=== PATIENT | male | born 2000 | race African-American/Black ===

== ENCOUNTER 2020-12-09 06:09 | Emergency (ER) | payer SELFPAY ==
[2020-12-09] VITALS (12 sets, daily range): BP systolic 119–135; BP diastolic 67–85; PULSE 61–66; RESP 15–20; TEMP 36.8; O2SAT 98–100
--- NOTE | ~2020-12-09 | CT_ITS ---
EXAMINATION: CT abdomen pelvis w con DATE: 12/09/2020 07:41 INDICATION: Right lower quadrant abdominal pain TECHNIQUE: Computed tomography (CT) of the abdomen and pelvis was performed with 100 mL Omnipaque-350 intravenous contrast. Automated exposure control and iterative reconstruction technique were employe d. The dose-length product was 215.63 mGy-cm. COMPARISON: None FINDINGS: Calcified nodule along the right major fissure consistent with old granulomatous disease. Heart size is normal. No pericardial or pleural effusion. Liver, gallbladder, spleen, pancreas, bilateral adrena l glands and kidneys are normal. Fluid throughout the small bowel without evident wall thickening or obstruction which could be seen with gastroenteritis. Colon and appendix are normal. Decompressed jia dder is normal. Minimal ascites in the pelvis. No abscess or free intraperitoneal gas. No pathologica lly enlarged abdominal or pelvic lymphadenopathy. Bones are unremarkable. IMPRESSION: 1. Nonspecific fluid-filled nondilated small bowel and minimal ascites in the pelvis which could be s een with an enteritis. 2. Normal appendix. Reviewed, dictated and finalized at location A. IMPRESSION: 1. Nonspecific fluid-filled nondilated small bowel and minimal ascites in the p anabella which could be seen with an enteritis. 2. Normal appendix.
[2020-12-09 07:02] LABS: Basophils Percent Auto 0.2 % (0.2-1.2); Eosinophils Absolute Auto 0.2 K/mm3 (0-0.3); Eosinophils Percent Auto 2.6 % (0-4.4); Hematocrit 44.3 % (42.0-52.0); Hemoglobin 14.5 g/dL (14.0-18.0); Immature Granulocyte Absolute 0.01 K/mm3 (0.00-0.031); Immature Granulocyte Percent A 0.2 % (0-0.5); Lymphocytes Absolute Auto 1.94 K/mm3 (0.9-3.2); Lymphocytes Percent Auto 29.7 % (18.3-44.2); Mean Corpuscular HGB Conc 32.7 g/dl (32-36); Mean Corpuscular Hemoglobin 30.9 pg (26-34); Mean Corpuscular Volume 94.3 fl (80-100); Mean Platelet Volume 8.3 fl (7.4-10.4); Monocytes Percent Auto 14.7 % (2.6-8.5); Neutrophils Absolute Auto 3.5 K/mm3 (1.3-6.7); Neutrophils Percent Auto 52.6 % (45.5-73.1); Platelet Count Result 239 k/mm3 (150-375); Red Cell Distribution Width 12.1 % (11.5-14.5); White Blood Count 6.5 K/mm3 (4.5-10.0)
[2020-12-09 07:11] LABS: Alanine Aminotransferase 15 U/L (4-50); Albumin Level 4.6 g/dL (3.5-5.1); Alkaline Phosphatase 96 U/L (38-126); Anion Gap 7 mmol/L (8-16); Aspartate Amino Transferase 37 U/L (17-59); Bilirubin,Total 0.4 mg/dL (0.2-1.3); Blood Urea Nitrogen 10 mg/dL (9-20); Calcium 9.4 mg/dL (8.4-10.2); Carbon Dioxide 30 mmol/L (22-30); Chloride 103 mmol/L (98-107); Estimated Glomerular Filt Rate > 60; Glucose 105 mg/dL (65-110); Lipase 30 U/L (23-300); Potassium 3.8 mmol/L (3.4-5.0); Sodium 140 mmol/L (137-145)
[2020-12-09 07:29] LABS: Add Urine Microscopic? YES; Appearance Urine Clear (Clear); Bilirubin Urine Negative (Negative); Blood Urine 1+ (Negative); Color Urine Yellow (Yellow); Glucose Urine UA Negative (Negative); Ketones Urine Negative (Negative); Leukocyte Esterase Ur Trace LEU/UL (Negative); Mucus Urine Rare /lpf; Nitrate Urine Negative (Negative); Protein Urine Negative (Negative); Specific Grav Ur 1.024 (1.001-1.035); Squamous Epithelial Cell Urine Rare /hpf (Few)
[2020-12-09] MEDS: SODIUM CHLORIDE 0.9% IV 1,000 ML 999 ML IV CONT (07:47)
[2020-12-09] MEDS: MORPHINE SULFATE (*CRX) 4 MG/ML INJ IV PUSH (07:47)
[2020-12-09] MEDS: ONDANSETRON INJ 4 MG/2 ML VIAL IV PUSH (07:47)
--- NOTE | 2020-12-09 09:07 | ED.ABDPAIN ---
HPI - Abdominal Pain General Chief Complaint: Abdominal Pain Stated Complaint: abd pain Time Seen by Provider: 12/09/20 07:00 History of Present Illness HPI narrative: Patient is a 20-year-old male who presents ER with abdominal pain. Has had discomfort in his abdomen for 4 days. Reports he had sudden increase in pain today while at work which made him cry. Pain is located in the right lower quadrant. Has had mild nausea but no vomiting. Reports he has had poor passage of stool. No previous surgeries. Denies fevers or chills or sweats. No known sick contacts. Related Data Allergies Allergy/AdvReac Type Severity Reaction Status Date / Time No Known Allergies Allergy Verified 12/09/20 07:25 Review of Systems Review of Systems: All systems reviewed & are unremarkable except as noted in HPI and below Constitutional: Constitutional: Denies chills, Denies fever(s) and Denies weakness ENT: Denies nasal congestion and Denies sore throat Respiratory: Respiratory: Denies cough and Denies dyspnea Gastrointestinal: Gastrointestinal: Reports abdominal pain, Denies diarrhea, Reports nausea and Denies vomiting PMFSH Past Medical History Medical History (Updated 12/09/20 @ 09:30 by Rich Mars MD) Healthy adult male Surgical History Surgical History (Updated 12/09/20 @ 09:16 by Rich Mars MD) No history of previous surgery Social History Social History (Updated 12/09/20 @ 09:16 by Rich Mars MD) Smoking status: Never smoker Exam Narrative: GENERAL: Well-appearing, well-nourished, and in no acute distress. HEAD: Normocephalic, atraumatic. ENT: Mucous membranes moist. CHEST: Clear to auscultation. No respiratory distress. HEART: Regular rate and rhythm. Normal peripheral pulses. ABDOMEN: Soft, moderate tenderness in the right lower quadrant with guarding, nondistended. EXTREMITIES: Normal range of motion. No edema. SKIN: Warm, dry, no rash. NEURO: Alert and oriented x3. PSYCH: Normal mood and affect. Course Course Emergency Course: Patient informed results. Abdominal pain resolved. He is reporting mild headache now. Will give oral Tylenol. Vital Signs Vital signs: Vital Signs Temperature 98.2 F 12/09/20 06:10 Pulse Rate 66 12/09/20 06:10 Respiratory Rate 20 12/09/20 06:10 Blood Pressure 135/67 12/09/20 06:10 Pulse Oximetry 99 12/09/20 06:10 Temperature 98.2 F 12/09/20 06:10 Pulse Rate 61 12/09/20 07:27 Respiratory Rate 15 12/09/20 07:27 Blood Pressure 119/73 12/09/20 07:27 Pulse Oximetry 99 12/09/20 07:27 MDM - Abdominal Pain Lab Data Result diagrams: 12/09/20 06:54 12/09/20 06:54 Labs: Lab Results 12/09/20 12/09/20 12/09/20 Range/Units 06:54 06:54 07:17 WBC 6.5 (4.5-10.0) K/mm3 RBC 4.70 (4.6-6.20) M/mm3 Hgb 14.5 (14.0-18.0) g/dL Hct 44.3 (42.0-52.0) % MCV 94.3 (80-100) fl MCH 30.9 (26-34) pg MCHC 32.7 (32-36) g/dl RDW 12.1 (11.5-14.5) % Plt Count 239 (150-375) k/mm3 MPV 8.3 (7.4-10.4) fl Immature Gran % (Auto) 0.2 (0-0.5) % Neut % (Auto) 52.6 (45.5-73.1) % Lymph % (Auto) 29.7 (18.3-44.2) % Nelson % (Auto) 14.7 H (2.6-8.5) % Eos % (Auto) 2.6 (0-4.4) % Baso % (Auto) 0.2 (0.2-1.2) % Lymph # (Auto) 1.94 (0.9-3.2) K/mm3 Nelson # (Auto) 1.0 H (0.1-0.6) K/mm3 Eos # (Auto) 0.2 (0-0.3) K/mm3 Baso # (Auto) 0.0 (0.0-0.1) K/mm3 Abs Immat Gran (auto) 0.01 (0.00-0.031) K/mm3 Absolute Neuts (auto) 3.5 (1.3-6.7) K/mm3 Absolute Nucleated RBC 0.0 (0.0-0.012) K/mm3 Nucleated RBC % 0.0 (0.0-0.2) % Sodium 140 (137-145) mmol/L Potassium 3.8 (3.4-5.0) mmol/L Chloride 103 (98-107) mmol/L Carbon Dioxide 30 (22-30) mmol/L Anion Gap 7 L (8-16) mmol/L BUN 10 (9-20) mg/dL Creatinine 0.80 (0.7-1.3) mg/dL Estim Creat Clear Calc Not Reportable Estimated GFR > 60
[2020-12-09] MEDS: ACETAMINOPHEN 325 MG TABLET 650 MG PO (09:12)
--- NOTE | 2020-12-09 09:15 | PC.NURSE ---
Patient reports abdominal pain has resolved, however he has a headache. Given tylenol for headache and also given crackers and water for PO challenge per MD Mars.
== END 2020-12-09 10:52 | disposition home or self-care (01) ==
PROVIDERS: General Practice; Emergency Provider Emergency Medicine
DX: K52.9 Noninfective gastroenteritis and colitis, unspecified (principal)
CPT/HCPCS: 36415; 74177; 80053; 81001; 83690; 85025; 96361; 96374; 96375; 99284; A9270; J2270; J2405; J7030; Q9967